=== PATIENT | female | born 1990 | race Caucasian/White ===

== ENCOUNTER 2017-09-14 14:38 | Inpatient (IN) | payer OTHER ==
[2017-09-14] VITALS (7 sets, daily range): BP systolic 115–142; BP diastolic 68–103; Ht 180.3 cm; Wt 116.5 kg
[~2017-09-14] VITALS: Ht 180.3 cm; Wt 116.5 kg
[2017-09-14 15:46] LABS: CALCIUM 8.4 mg/dL (8.5-10.1); CARBON DIOXIDE 24.8 mmol/L (21-32); CHLORIDE SERUM 105 mmol/L (98-107); CREATININE SERUM 0.7 mg/dL (0.6-1.0); GFR1 > 60 mL/min; GLUCOSE SERUM 115 mg/dL (74-106); POTASSIUM SERUM 4.2 mmol/L (3.5-5.1); SODIUM SERUM 143 mmol/L (136-145)
[2017-09-14 15:49] LABS: AMPHETAMINE QUAL UR NONE DETECTED (NEG <=1000)
[2017-09-14 15:51] LABS: ALBUMIN 3.9 g/dL (3.4-5.0); ALKALINE PHOSPHATASE 54 U/L (46-116); ALT/SGPT 87 U/L (14-59); AST/SGOT 47 U/L (15-37); BILIRUBIN TOTAL 0.2 mg/dL (0.20-1.00); TOTAL PROTEIN, SERUM 7.6 g/dL (6.4-8.2)
[2017-09-14 16:08] LABS: BASOPHIL % 0.6 % (0-2); PLATELET COUNT 342 x10^3mcL (130-400); RED CELL DISTRIBUTION WIDTH 13.8 % (11.5-14.5)
[2017-09-14] MEDS ORDERED: XAN1 PO (17:18)
[2017-09-14] MEDS ORDERED: TRAZODONE100 MG PO (17:18)
[2017-09-14 17:53] LABS: T3 TOTAL 1.13 ng/mL
[2017-09-14 17:57] LABS: MAGNESIUM 2.3 mg/dL (1.8-2.4); PHOSPHOROUS 4.3 mg/dL (2.5-4.9)
[2017-09-14 17:58] LABS: CHOLESTEROL/HDL RATIO 4.9
[2017-09-14 17:59] LABS: UA SPECIFIC GRAVITY <=1.005 (1.005-1.035); microscopic required? YES; urine erythrocyte NEGATIVE (NEGATIVE)
[2017-09-14 18:20] LABS: FREE T4 0.98 ng/dL (0.76-1.46); FREE THYROXINE INDEX 2.8 ug/dL (1.4-4.5)
[2017-09-15] VITALS (19 sets, daily range): BP systolic 113–168; BP diastolic 72–109
[2017-09-15 05:24] LABS: BASOPHIL % 1.4 % (0-2); PLATELET COUNT 261 x10^3mcL (130-400); RED CELL DISTRIBUTION WIDTH 14.1 % (11.5-14.5)
[2017-09-15 05:38] LABS: CALCIUM 8.1 mg/dL (8.5-10.1); CARBON DIOXIDE 25.2 mmol/L (21-32); CREATININE SERUM 0.7 mg/dL (0.6-1.0); GFR1 > 60 mL/min; GLUCOSE SERUM 118 mg/dL (74-106); MAGNESIUM 1.8 mg/dL (1.8-2.4); PHOSPHOROUS 3.7 mg/dL (2.5-4.9)
[2017-09-15 05:45] LABS: CHLORIDE SERUM 108 mmol/L (98-107); POTASSIUM SERUM 3.5 mmol/L (3.5-5.1); SODIUM SERUM 145 mmol/L (136-145)
[2017-09-15] MEDS ORDERED: BUSPIRONE HCL10 MG PO (14:13)
[2017-09-16] VITALS (14 sets, daily range): BP systolic 131–176; BP diastolic 83–115
[2017-09-16 05:13] LABS: BASOPHIL % 1.4 % (0-2); PLATELET COUNT 211 x10^3mcL (130-400)
[2017-09-16 05:15] LABS: CALCIUM 8.1 mg/dL (8.5-10.1); CARBON DIOXIDE 26.9 mmol/L (21-32); CHLORIDE SERUM 108 mmol/L (98-107); CREATININE SERUM 0.7 mg/dL (0.6-1.0); GFR1 > 60 mL/min; GLUCOSE SERUM 119 mg/dL (74-106); MAGNESIUM 1.7 mg/dL (1.8-2.4); PHOSPHOROUS 3.4 mg/dL (2.5-4.9); POTASSIUM SERUM 3.2 mmol/L (3.5-5.1); SODIUM SERUM 145 mmol/L (136-145)
[2017-09-17] VITALS (7 sets, daily range): BP systolic 125–159; BP diastolic 55–113
[2017-09-17 05:23] LABS: BASOPHIL % 0.9 % (0-2); PLATELET COUNT 224 x10^3mcL (130-400); RED CELL DISTRIBUTION WIDTH 13.6 % (11.5-14.5)
[2017-09-17 05:32] LABS: CALCIUM 8.7 mg/dL (8.5-10.1); CARBON DIOXIDE 26.5 mmol/L (21-32); CHLORIDE SERUM 102 mmol/L (98-107); CREATININE SERUM 0.6 mg/dL (0.6-1.0); GFR1 > 60 mL/min; GLUCOSE SERUM 110 mg/dL (74-106); PHOSPHOROUS 2.4 mg/dL (2.5-4.9); POTASSIUM SERUM 3.7 mmol/L (3.5-5.1); SODIUM SERUM 137 mmol/L (136-145)
[2017-09-18 05:13] VITALS: BP 139/93
[2017-09-18 07:04] LABS: BASOPHIL % 0.3 % (0-2); PLATELET COUNT 198 x10^3mcL (130-400); RED CELL DISTRIBUTION WIDTH 13.5 % (11.5-14.5)
[2017-09-18 08:04] LABS: CALCIUM 8.2 mg/dL (8.5-10.1); CARBON DIOXIDE 26.5 mmol/L (21-32); CHLORIDE SERUM 103 mmol/L (98-107); CREATININE SERUM 0.5 mg/dL (0.6-1.0); GFR1 > 60 mL/min; GLUCOSE SERUM 84 mg/dL (74-106); PHOSPHOROUS 3.2 mg/dL (2.5-4.9); POTASSIUM SERUM 3.4 mmol/L (3.5-5.1); SODIUM SERUM 139 mmol/L (136-145)
[2017-09-18 08:30] VITALS: BP 154/95
[2017-09-18 12:40] VITALS: BP 155/104
[2017-09-18] MEDS ORDERED: THI100 PO (12:58)
[2017-09-18] MEDS ORDERED: FOL1 PO (12:58)
[2017-09-18] MEDS ORDERED: ROBL PO (13:00)
[2017-09-18] MEDS ORDERED: CEPACOL SORE TH1 LO4 MM (13:00)
[2017-09-18] MEDS ORDERED: METOPROLOL TART25 M1 PO (13:28)
[2017-09-18 13:58] VITALS: BP 139/85
[2017-09-18 14:42] VITALS: BP 139/85
== END 2017-09-18 16:20 | disposition home or self-care (01) | DRG 812 ==
LOC: ED 14:38 → IC 16:27 → MU 09-17 22:41 → DU 09-17 22:54
PROVIDERS: Emergency Medicine; Family Medicine
PROC: 5A1945Z Respiratory Ventilation, 24-96 Consecutive Hours (ICD-10-PCS; principal; 2017-09-14)
PROC: 0BH17EZ Insertion of Endotracheal Airway into Trachea, Via Natural or Artificial Opening (ICD-10-PCS; 2017-09-14)
PROC: 02HV33Z Insertion of Infusion Device into Superior Vena Cava, Percutaneous Approach (ICD-10-PCS; 2017-09-14)
PROC: B548ZZA Ultrasonography of Superior Vena Cava, Guidance (ICD-10-PCS; 2017-09-14)
DX: T42.4X2A Poisoning by benzodiazepines, intentional self-harm, initial encounter (principal); N17.0 Acute kidney failure with tubular necrosis; J96.01 Acute respiratory failure with hypoxia; R65.20 Severe sepsis without septic shock; J69.0 Pneumonitis due to inhalation of food and vomit; G92 Toxic encephalopathy; A41.9 Sepsis, unspecified organism; E87.2 Acidosis; F10.229 Alcohol dependence with intoxication, unspecified; E78.5 Hyperlipidemia, unspecified; F43.10 Post-traumatic stress disorder, unspecified; Y90.8 Blood alcohol level of 240 mg/100 ml or more; Y92.008 Other place in unspecified non-institutional (private) residence as the place of occurrence of the external cause; E87.6 Hypokalemia; E83.42 Hypomagnesemia; E87.8 Other disorders of electrolyte and fluid balance, not elsewhere classified; E83.51 Hypocalcemia; E66.9 Obesity, unspecified; F33.9 Major depressive disorder, recurrent, unspecified; Z79.899 Other long term (current) drug therapy
CPT/HCPCS: 36556; 36600; 83880; 84439; A4628; C9113; G0480; J0696; J1642; J1885; J2060; J2270; J2543; J2704; J3480; J7030; J7050; Q0092